=== PATIENT | male | born 1965 | race Caucasian/White ===

== ENCOUNTER 2022-01-05 11:35 | Emergency (ER) | payer OTHER ==
[~2022-01-05] VITALS: Ht 185.4 cm; Wt 113.4 kg
== END 2022-01-05 13:13 | disposition home or self-care (01) ==
LOC: FSED 11:47
DX: S60.222A Contusion of left hand, initial encounter (principal); W23.1XXA Caught, crushed, jammed, or pinched between stationary objects, initial encounter; Y92.89 Other specified places as the place of occurrence of the external cause; I10 Essential (primary) hypertension
CPT/HCPCS: 99282